=== PATIENT | female | born 1960 | race Caucasian/White ===

== ENCOUNTER 2017-09-13 07:27 | Day surgery (SDC) | payer OTHER ==
[~2017-09-13] VITALS: Ht 162.6 cm; Wt 58.0 kg
[~2017-09-13 07:27] MED LIST: BACTRIM,SEPT1 TABLET PO; NO MEDS; PYRIDIUM100 MG PO
[2017-09-16] MEDS ORDERED: ZOFRAN8 MG PO (14:20)
[2017-09-16] MEDS ORDERED: COMPAZINE10 MG PO (14:20)
== END 2017-09-13 09:56 | disposition home or self-care (01) ==
LOC: CATH 07:27
DX: I87.8 Other specified disorders of veins (principal); C50.919 Malignant neoplasm of unspecified site of unspecified female breast; Z87.891 Personal history of nicotine dependence
CPT/HCPCS: C1752; C1894; J1644; J2250; J3010; S0020

== ENCOUNTER → 2018-02-11 | Outpatient (CLI) | payer OTHER ==
[~2018-02-11] MED LIST changes: +CLARITIN,ALAVAR10 MG PO; +COMPAZINE10 MG PO; +ROBITUSSIN100 MG/5 M PO; +ULTRAM50 MG PO; +ZOFRAN8 MG PO
== END | disposition home or self-care (01) ==
LOC: CDC 09:47
DX: Z01.810 Encounter for preprocedural cardiovascular examination (principal); C50.412 Malignant neoplasm of upper-outer quadrant of left female breast
CPT/HCPCS: 93000

== ENCOUNTER 2018-03-03 07:24 | Day surgery (SDC) | payer OTHER ==
[~2018-03-03] VITALS: Ht 162.6 cm; Wt 62.1 kg
[2018-03-03 08:28] VITALS: BP 105/62
[2018-03-03] MEDS ORDERED: HYDROCODON-ACE1 EAC7 PO (15:42)
[2018-03-03 18:05] VITALS: BP 112/69
[2018-03-03 18:53] VITALS: BP 109/68
== END 2018-03-03 18:55 | disposition home or self-care (01) ==
LOC: SDC 07:24 → NUC 07:24 → SDC 09:00
DX: C50.412 Malignant neoplasm of upper-outer quadrant of left female breast (principal); Z17.1 Estrogen receptor negative status [ER-]; Z92.21 Personal history of antineoplastic chemotherapy; Z90.710 Acquired absence of both cervix and uterus; Z87.891 Personal history of nicotine dependence; Z86.010 Personal history of colon polyps; Z98.51 Tubal ligation status; Z83.3 Family history of diabetes mellitus; Z82.49 Family history of ischemic heart disease and other diseases of the circulatory system; Z80.3 Family history of malignant neoplasm of breast; Z82.5 Family history of asthma and other chronic lower respiratory diseases
CPT/HCPCS: 78195; 78999; A9541; J0131; J1100; J1170; J2250; J3010; S0020

== ENCOUNTER → 2018-06-11 | Outpatient (CLI) | payer OTHER ==
[~2018-06-11] MED LIST changes: +HYDROCODON-ACE1 EAC7 PO
== END | disposition home or self-care (01) ==
LOC: AMB 09:30
DX: Z45.2 Encounter for adjustment and management of vascular access device (principal); I87.8 Other specified disorders of veins; Z92.21 Personal history of antineoplastic chemotherapy